=== PATIENT | male | born 1985 | race Caucasian/White ===

== ENCOUNTER → 2016-08-01 | Outpatient (CLI) | payer OTHER ==
[~2016-08-01] MED LIST: ASPI1TAB PO; CYCL10TA PO; ESCI10TA2 PO; MOTR200T44 PO; SERO1TAB3 PO
== END ==
LOC: M OUTALCOH 08:30
PROVIDERS: ATTEND Psychiatry & Neurology Psychiatry
DX: Z13.9 Encounter for screening, unspecified (principal); F10.20 Alcohol dependence, uncomplicated; F12.20 Cannabis dependence, uncomplicated

== ENCOUNTER → 2017-02-21 | Outpatient (REF) | payer OTHER | LOC: M SFHCLERA 19:53 | PROVIDERS: ATTEND Nurse Practitioner Family | DX: J02.9 Acute pharyngitis, unspecified (principal) ==

== ENCOUNTER → 2017-12-25 | Outpatient (CLI) | payer OTHER ==
[2017-12-25 19:59] LABS: ALBUMIN 3.8 GM/DL (3.2-5.2); ALBUMIN/GLOBULIN RATIO 1.09 (1.00-1.93); ALKALINE PHOSPHATASE 74 U/L (45-117); ALT/SGPT 28 U/L (12-78); ANION GAP 13 MEQ/L (8-16); AST/SGOT 18 U/L (7-37); BILIRUBIN,TOTAL 0.5 MG/DL (0.2-1.0); BLOOD UREA NITROGEN 15 MG/DL (7-18); CALCIUM LEVEL 9.2 MG/DL (8.5-10.1); CARBON DIOXIDE LEVEL 24 MEQ/L (21-32); CHLORIDE LEVEL 106 MEQ/L (98-107); CHOLESTEROL LEVEL 196 MG/DL (<200); CHOLESTEROL RISK RATIO 5.025 (<5); CREATININE FOR GFR 1.05 MG/DL (0.70-1.30); GLOMERULAR FILTRATION RATE > 60.0 (>60); GLUCOSE, FASTING 84 MG/DL (70-100); HDL CHOLESTEROL 39 MG/DL (>40); LDL CHOLESTEROL 131 MG/DL (<100); NON-HDL-C 157 MG/DL; POTASSIUM SERUM 4.5 MEQ/L (3.5-5.1); SODIUM LEVEL 143 MEQ/L (136-145); TOTAL PROTEIN 7.3 GM/DL (6.4-8.2); TRIGLYCERIDES LEVEL 131 MG/DL (<150)
== END ==
LOC: M LAB 11:07
DX: R74.0 Nonspecific elevation of levels of transaminase and lactic acid dehydrogenase [LDH] (principal); Z13.220 Encounter for screening for lipoid disorders
CPT/HCPCS: 80053

== ENCOUNTER → 2018-12-13 | Outpatient (REF) | payer OTHER ==
[~2018-12-13] MED LIST changes: -ASPI1TAB PO; +ASPI81TA26 PO
== END ==
LOC: M SFHCLERA 11:45
PROVIDERS: ATTEND Nurse Practitioner Family
DX: J02.9 Acute pharyngitis, unspecified (principal)

== ENCOUNTER → 2020-02-11 | Outpatient (CLI) | payer OTHER ==
[~2020-02-11] MED LIST changes: +CYCL-707 PO; -CYCL10TA PO
== END ==
LOC: M OUTALCOH 09:41
PROVIDERS: ATTEND Psychiatry & Neurology Addiction Medicine
DX: F10.20 Alcohol dependence, uncomplicated (principal); F12.20 Cannabis dependence, uncomplicated

== ENCOUNTER → 2020-03-04 | Outpatient (RCR) | payer OTHER | LOC: M OUTALCOH 02-18 15:50 | PROVIDERS: ATTEND Psychiatry & Neurology Addiction Medicine | DX: F10.20 Alcohol dependence, uncomplicated (principal); F12.20 Cannabis dependence, uncomplicated; F17.200 Nicotine dependence, unspecified, uncomplicated ==

== ENCOUNTER 2020-04-02 10:00 | Outpatient (RCR) | payer OTHER ==
[~2020-04-02 10:00] MED LIST changes: +ESCI10TA16 PO; -ESCI10TA2 PO
== END 2020-04-04 ==
LOC: M OUTALCOH 10:00
PROVIDERS: ATTEND Psychiatry & Neurology Psychiatry
DX: F10.20 Alcohol dependence, uncomplicated (principal); F12.20 Cannabis dependence, uncomplicated; F17.200 Nicotine dependence, unspecified, uncomplicated

== ENCOUNTER 2020-04-28 14:12 | Outpatient (RCR) | payer OTHER | END 2020-05-02 | LOC: M OUTALCOH 14:12 | PROVIDERS: ATTEND Psychiatry & Neurology Addiction Medicine | DX: F10.20 Alcohol dependence, uncomplicated (principal); F12.20 Cannabis dependence, uncomplicated; F17.200 Nicotine dependence, unspecified, uncomplicated ==

== ENCOUNTER → 2020-05-11 | Outpatient (CLI) | payer SELFPAY | LOC: M LABSMTC 10:00 | PROVIDERS: ATTEND Pediatrics | DX: Z11.52 Encounter for screening for COVID-19 (principal) ==

== ENCOUNTER → 2020-06-02 | Outpatient (RCR) | payer OTHER | LOC: M OUTALCOH 05-05 13:29 | PROVIDERS: ATTEND Psychiatry & Neurology Psychiatry | DX: F10.20 Alcohol dependence, uncomplicated (principal); F12.20 Cannabis dependence, uncomplicated; F17.200 Nicotine dependence, unspecified, uncomplicated ==

== ENCOUNTER → 2020-07-02 | Outpatient (RCR) | payer OTHER | LOC: M OUTALCOH 06-07 16:00 | PROVIDERS: ATTEND Psychiatry & Neurology Psychiatry | DX: F10.20 Alcohol dependence, uncomplicated (principal); F12.20 Cannabis dependence, uncomplicated; F17.200 Nicotine dependence, unspecified, uncomplicated ==

== ENCOUNTER 2020-07-16 09:30 | Outpatient (RCR) | payer OTHER | END 2020-08-02 | LOC: M OUTALCOH 09:30 | PROVIDERS: ATTEND Psychiatry & Neurology Psychiatry | DX: F10.20 Alcohol dependence, uncomplicated (principal); F12.20 Cannabis dependence, uncomplicated; F17.200 Nicotine dependence, unspecified, uncomplicated ==

== ENCOUNTER 2020-08-18 09:00 | Outpatient (RCR) | payer OTHER | END 2020-09-01 | LOC: M OUTALCOH 09:00 | PROVIDERS: ATTEND Psychiatry & Neurology Psychiatry | DX: F10.20 Alcohol dependence, uncomplicated (principal); F12.20 Cannabis dependence, uncomplicated; F17.200 Nicotine dependence, unspecified, uncomplicated ==

== ENCOUNTER 2020-09-21 10:00 | Outpatient (RCR) | payer OTHER | END 2020-10-02 | LOC: M OUTALCOH 10:00 | PROVIDERS: ATTEND Psychiatry & Neurology Psychiatry | DX: F10.20 Alcohol dependence, uncomplicated (principal); F12.20 Cannabis dependence, uncomplicated; F17.200 Nicotine dependence, unspecified, uncomplicated ==

== ENCOUNTER → 2020-11-02 | Outpatient (RCR) | payer OTHER | LOC: M OUTALCOH 11:22 | PROVIDERS: ATTEND Psychiatry & Neurology Psychiatry | DX: F10.20 Alcohol dependence, uncomplicated (principal); F12.20 Cannabis dependence, uncomplicated; F17.200 Nicotine dependence, unspecified, uncomplicated ==

== ENCOUNTER 2020-12-06 10:04 | Outpatient (RCR) | payer OTHER | END 2021-01-02 | LOC: M OUTALCOH 10:04 | PROVIDERS: ATTEND Psychiatry & Neurology Psychiatry | DX: F10.20 Alcohol dependence, uncomplicated (principal); F12.20 Cannabis dependence, uncomplicated; F17.200 Nicotine dependence, unspecified, uncomplicated ==

== ENCOUNTER 2021-01-17 09:36 | Outpatient (RCR) | payer OTHER | END 2021-02-01 | LOC: M OUTALCOH 09:36 | PROVIDERS: ATTEND Psychiatry & Neurology Psychiatry | DX: F10.20 Alcohol dependence, uncomplicated (principal); F12.20 Cannabis dependence, uncomplicated; F17.200 Nicotine dependence, unspecified, uncomplicated ==

== ENCOUNTER 2022-02-02 02:09 | Inpatient (IN) | payer OTHER ==
[~2022-02-02] VITALS: Ht 175.3 cm; Wt 73.9 kg
[2022-02-02] MEDS ORDERED: NS 1,000 ML IV ONE (02:15)
[2022-02-02] MEDS ORDERED: ISOVUE-370 76% 100ML VIAL As Ordered ONE (02:20)
[2022-02-02] MEDS ORDERED: BOOSTRIX/ADACEL VACCINE (DIPHTH/PERTUSS/ACELL/TETANUS) 0.5ML SYR IM.IMMUN ONE (02:20)
[2022-02-02 02:23] VITALS: O2SAT 100
[2022-02-02 02:28] LABS: BASO # 0.1 10^3/uL (0.0-0.2); BASO % 0.8 % (0.0-1.0); EOS # 0.1 10^3/uL (0.0-0.5); EOS % 0.9 % (0.0-3.0); HEMATOCRIT 45.1 % (42.0-52.0); HEMOGLOBIN 15.5 g/dl (13.5-17.5); LYMPH # 1.9 10^3/uL (1.5-5.0); LYMPH % 20.7 % (24.0-44.0); MEAN CORPUSCULAR HEMOGLOBIN 33.5 pg (27.0-33.0); MEAN CORPUSCULAR HGB CONC 34.4 g/dl (32.0-36.5); MEAN CORPUSCULAR VOLUME 97.4 fl (80.0-96.0); MONO # 0.8 10^3/uL (0.0-0.8); MONO % 8.3 % (2.0-8.0); NEUTROPHILS # 6.3 10^3/uL (1.5-8.5); PLATELET COUNT, AUTOMATED 274 10^3/uL (150-450); RED BLOOD COUNT 4.63 10^6/uL (4.30-6.10); WHITE BLOOD COUNT 9.1 10^3/uL (4.0-10.0)
[2022-02-02 02:38] LABS: PROTHROMBIN TIME 13.4 SECONDS (12.5-14.5)
[2022-02-02 02:39] LABS: PARTIAL THROMBOPLASTIN TIME 22.6 SECONDS (24.8-34.2)
[2022-02-02] MEDS ORDERED: ceFAZolin SOD 1 GM in D5W MINI-BAG PLUS 50 ML IV ONE (02:50)
[2022-02-02 02:56] LABS: ETHYL ALCOHOL (ETHANOL) 0.142 % (0.000-0.010); LIPASE 40 U/L (12-53)
[2022-02-02 02:57] LABS: BILIRUBIN,DIRECT 0.1 MG/DL (<0.4)
[2022-02-02 02:58] LABS: ALBUMIN 3.8 G/DL (3.2-5.2); ALKALINE PHOSPHATASE 62 U/L (46-116); ALT/SGPT 18 U/L (7.0-40); AST/SGOT 26 U/L (<34); BILIRUBIN,TOTAL 0.5 MG/DL (0.3-1.2); BLOOD UREA NITROGEN 12 MG/DL (9-23); CALCIUM LEVEL 8.6 MG/DL (8.5-10.1); CARBON DIOXIDE LEVEL 26 MMOL/L (20-31); CHLORIDE LEVEL 105 MMOL/L (98-107); CK-MB VALUE MASS 1.6 NG/ML (<3.6); CPK CREATINE PHOSPHOKINASE 256 U/L (46-171); CREATININE FOR GFR 1.03 MG/DL (0.70-1.30); GLOMERULAR FILTRATION RATE > 60.0 (>60); GLUCOSE, FASTING 100 MG/DL (60-100); MB/CK RELATIVE INDEX 0.62 (< OR =4); POTASSIUM SERUM 4.1 MMOL/L (3.5-5.1); SODIUM LEVEL 141 MMOL/L (136-145); TOTAL PROTEIN 6.7 G/DL (5.7-8.2)
[2022-02-02] MEDS ORDERED: NORCO, ANEXSIA 5/325MG TABLET (HYDROcodone/ACETAMINOPHEN) PO PRN (03:05)
[2022-02-02] MEDS ORDERED: ACETAMINOPHEN TAB 650MG DOSE (2X325MG) PO PRN (03:05)
[2022-02-02 03:20] LABS: RSV AMPLIFICATION NEGATIVE (NEGATIVE)
[2022-02-02] MEDS ORDERED: BUPR15TASR PO (03:27)
[2022-02-02] MEDS ORDERED: LEXA1TAB PO (03:27)
[2022-02-02] MEDS ORDERED: HOME MED LIST COMPLETE! XX SCH (03:30)
[2022-02-02 03:31] LABS: AMPHETAMINES LEVEL URINE NEGATIVE (NEGATIVE); BARBITURATES URINE NEGATIVE (NEGATIVE); BENZODIAZEPINES URINE NEGATIVE (NEGATIVE); COCAINE METABOLITE URINE NEGATIVE (NEGATIVE); METHADONE URINE NEGATIVE (NEGATIVE); OPIATES URINE NEGATIVE (NEGATIVE); PHENCYCLIDINE URINE NEGATIVE (NEGATIVE)
[2022-02-02 03:58] LABS: CANNABINOIDS URINE POSITIVE (NEGATIVE)
[2022-02-02] MEDS: PERCOCET 5MG/325MG TAB PO PRN ×2 (04:29→19:39)
[2022-02-02 04:38] VITALS: BP 140/65
[2022-02-02 05:17] LABS: BASO # 0.1 10^3/uL (0.0-0.2); BASO % 0.4 % (0.0-1.0); EOS % 0.2 % (0.0-3.0); HEMATOCRIT 43.9 % (42.0-52.0); HEMOGLOBIN 14.8 g/dl (13.5-17.5); LYMPH # 1.7 10^3/uL (1.5-5.0); LYMPH % 10.8 % (24.0-44.0); MEAN CORPUSCULAR HEMOGLOBIN 33.3 pg (27.0-33.0); MEAN CORPUSCULAR HGB CONC 33.7 g/dl (32.0-36.5); MEAN CORPUSCULAR VOLUME 98.9 fl (80.0-96.0); MONO # 0.9 10^3/uL (0.0-0.8); MONO % 5.6 % (2.0-8.0); NEUTROPHILS # 12.7 10^3/uL (1.5-8.5); NEUTROPHILS % 82.7 % (36.0-66.0); PLATELET COUNT, AUTOMATED 238 10^3/uL (150-450); RED BLOOD COUNT 4.44 10^6/uL (4.30-6.10); WHITE BLOOD COUNT 15.3 10^3/uL (4.0-10.0)
[2022-02-02 05:47] LABS: BLOOD UREA NITROGEN 10 MG/DL (9-23); CALCIUM LEVEL 8.2 MG/DL (8.5-10.1); CARBON DIOXIDE LEVEL 26 MMOL/L (20-31); CHLORIDE LEVEL 108 MMOL/L (98-107); CREATININE FOR GFR 0.86 MG/DL (0.70-1.30); GLOMERULAR FILTRATION RATE > 60.0 (>60); GLUCOSE, FASTING 113 MG/DL (60-100); POTASSIUM SERUM 3.9 MMOL/L (3.5-5.1); SODIUM LEVEL 142 MMOL/L (136-145)
[2022-02-02 08:00] VITALS: BP 118/68
[2022-02-02] MEDS: ESCITALOPRAM OXALATE 10 MG TAB (LEXAPRO) PO SCH (08:37)
[2022-02-02] MEDS: buPROPion **SR TABLET** (ZYBAN) 150MG PO SCH (09:30)
[2022-02-02 12:00] VITALS: BP 112/65
[2022-02-02 20:00] VITALS: BP 118/79
[2022-02-03 04:00] VITALS: BP 122/65
[2022-02-03] MEDS: buPROPion **SR TABLET** (ZYBAN) 150MG PO SCH (07:58)
[2022-02-03] MEDS: ESCITALOPRAM OXALATE 10 MG TAB (LEXAPRO) PO SCH (07:58)
[2022-02-03] MEDS: PERCOCET 5MG/325MG TAB PO PRN (07:58)
[2022-02-03 08:00] VITALS: BP 123/63
[2022-02-03] MEDS ORDERED: ESCITALOPRAM OXALATE 10 MG TAB (LEXAPRO) PO SCH (09:00)
[2022-02-03] MEDS ORDERED: buPROPion **SR TABLET** (ZYBAN) 150MG PO SCH (09:00)
[2022-02-03] MEDS ORDERED: PERCOCET PO (09:08)
== END 2022-02-03 12:12 | disposition home or self-care (01) | DRG 135 ==
LOC: EDBD 02:09 → M ED 02:09 → M ED INP 03:02 → M ICU 04:24
PROVIDERS: ADMIT Surgery; ATTEND Surgery
DX: S27.331A Laceration of lung, unilateral, initial encounter (principal); S21.3 Open wound of front wall of thorax with penetration into thoracic cavity; S22.32XA Fracture of one rib, left side, initial encounter for closed fracture; Z79.899 Other long term (current) drug therapy; X99.1XXA Assault by knife, initial encounter; Y07.04 Female partner, perpetrator of maltreatment and neglect; Y92.009 Unspecified place in unspecified non-institutional (private) residence as the place of occurrence of the external cause; Y93.89 Activity, other specified; F17.200 Nicotine dependence, unspecified, uncomplicated; Y99.8 Other external cause status; Z79.82 Long term (current) use of aspirin; S27.2XXA Traumatic hemopneumothorax, initial encounter

== ENCOUNTER → 2025-02-12 | Outpatient (CLI) | payer OTHER ==
[~2025-02-12] MED LIST changes: +BUPR15TASR PO; +LEXA1TAB PO; +PERCOCET PO
== END ==
LOC: M OUTALCOH 07:38
PROVIDERS: ATTEND Psychiatry & Neurology Psychiatry
DX: Z03.89 Encounter for observation for other suspected diseases and conditions ruled out (principal); F17.200 Nicotine dependence, unspecified, uncomplicated